=== PATIENT | female | born 1995 | race Caucasian/White ===

== ENCOUNTER 2016-05-09 20:08 | Emergency (ER) | payer MEDICAID, OTHER ==
[2016-05-09 21:21] VITALS: BP 108/72
--- NOTE | 2016-05-09 21:34 | UC ---
Ear Complaint HPI - HPI Summary HPI Summary: pt c/o right ear pain X 3 days. C/o of feeling that there is water in her ear. - History of Current Complaint Chief Complaint: UCEar Stated Complaint: EAR COMPLAINT Time Seen by Provider: 05/09/16 20:18 Hx Obtained From: Patient Hx Last Menstrual Period: GAVE IN FEBRUARY 2016 ?: No Onset/Duration: Gradual Onset, Lasting Days Severity Initially: Mild Severity Currently: Mild Associated Signs/Symptoms: Positive: Foreign Body Sensation - Allergies/Home Medications Allergies/Adverse Reactions: Allergies Allergy/AdvReac Type Severity Reaction Status Date / Time Morphine Allergy Intermediate Rash Verified 05/09/16 21:21 PMH/Surg Hx/FS Hx/Imm Hx Previously Healthy: Yes - Surgical History Surgical History: Yes Surgery Procedure, Year, and Place: Tonsillectomy ~ 2009, CHOLECYSTECTOMY - Family History Known Family History: Positive: Cardiac Disease - Social History Lives: With Family Alcohol Use: None Substance Use Type: None Smoking Status (MU): Current Every Day Smoker Type: Cigarettes Amount Used/How Often: 3-4 CIG/DAY - Immunization History Most Recent Influenza Vaccination: Fall 2012 Most Recent Tetanus Shot: unk Most Recent Pneumonia Vaccination: none Review of Systems Constitutional: Negative Skin: Negative Eyes: Negative ENT: Ear Ache - right ear Respiratory: Negative Cardiovascular: Negative Gastrointestinal: Negative Genitourinary: Negative Motor: Negative Neurovascular: Negative Musculoskeletal: Negative Neurological: Negative Psychological: Negative All Other Systems Reviewed And Are Negative: Yes Physical Exam Triage Information Reviewed: Yes Appearance: Well-Appearing Vital Signs: Initial Vital Signs Temp 98 F 05/09/16 21:17 Pulse 76 05/09/16 21:17 Resp 16 05/09/16 21:17 BP 108/72 05/09/16 21:17 Pulse Ox 99 05/09/16 21:17 Vital Signs Reviewed: Yes ENT Exam: Other ENT: Positive: TM bulging - right, right outer ear canal swollen Neck exam: Normal Respiratory Exam: Normal Cardiovascular Exam: Normal Musculoskeletal Exam: Normal Neurological Exam: Normal Psychological Exam: Normal Skin Exam: Normal Ear Complaint Course/Dx - Differential Dx/Diagnosis Differential Diagnosis/HQI/PQRI: Cerumen Impaction, Otitis Externa, Otitis Media , URI Provider Diagnoses: right ear ache Discharge - Discharge Plan Condition: Stable Disposition: HOME Prescriptions: Ciproflox/Dexameth OTIC.SUSP* [Ciprodex OTIC.SUSP*] 3 drop RIGHT EAR Q8HR #1 btl Patient Education Materials: Earache (ED) Referrals: ANGI Jose [Primary Care Provider] -
== END 2016-05-09 21:30 | disposition home or self-care (01) ==
LOC: UCEAST 20:08
DX: H92.01 Otalgia, right ear (principal); Z88.5 Allergy status to narcotic agent; F17.210 Nicotine dependence, cigarettes, uncomplicated
CPT/HCPCS: 99212; G0463

== ENCOUNTER 2018-11-09 19:34 | Emergency (ER) | payer SELFPAY ==
--- OUTSIDE RECORDS SUMMARY | 2018-11-09 20:17 | XMS REPORT | Continuity of Care Document ---
:1995 Author Organization [facility] Support Name Relationship Address Phone ERIK CHIN mother [address] [place] [address] ERIK CHIN mother [id number] [place] [address] Allergies and Intolerances Code Code System Allergy Type Reaction Severity Start Date End Date Status Substance 7052 RXNorm Morphine Drug allergy itching Moderate 1994 Active (disorder) Medications RxNorm Medication Dose Route Instructions Start End Date Status Date 917710 Etonogestrel 68 1 implant subdermal subdermally once Active MG Drug Implant Problems Code Code System Problem Name Start Date End Date Status 253319917 SNOMED-CT Gastroesophageal reflux disease U Active GALLBLADDER REMOVAL U Active Procedures No data in the system Results Laboratory Results Order: AMYLASE Specimen Source: Body Site : Legend: (G,H)=High, (GG,HH,CH,#H)=Above High Threshold, (#,L)=Low, (##,CL,#L, LL)=Below Low Threshold, (C,CC,CA,#A,A)=Abnormal LOINC Test Result Flag Range Units Date 1798-09 1Amylase [facility] 52 25-125 U/L 10/24/2018 04:52 Performing Lab Footnotes:[facility] - [id number] - [address] [place] [address] AUDREY THURMAN Order: CBC DIFF Specimen Source: Body Site: Legend: (G,H)=High, (GG,HH, CH,#H)=Above High Threshold, (#,L)=Low, (##,CL,#L,LL)=Below Low Threshold, (C,CC ,CA,#A,A)=Abnormal LOINC Test Result Flag Range Units Date 6690-2 1WBC # Bld Auto 13.7 H 4.8-10.8 K/uL 10/24/2018 04:52 97945-3 1RBC # Bld 4.71 4.20-5.40 M/uL 10/24/2018 04:52 718-7 1Hgb Bld-mCnc 14.8 12.0-16.0 gm/dL 10/24/2018 04:52 4544-3 1Hct VFr Bld Auto 41.6 36.0-48.0 % 10/24/2018 04:52 787-2 1MCV RBC Auto 88.2 80.0-100.0 fL 10/24/2018 04:52 23684-6 1MCHC RBC-mCnc 35.5 30.0-36.5 % 10/24/2018 04:52 14270-0 1MCH RBC Qn 31.4 27.0-34.0 pg 10/24/2018 04:52 22696-9 1RDW RBC 12.6 11.0-15.0 % 10/24/2018 04:52 777-3 1Platelet # Bld Auto 251 130-450 K/uL 10/24/2018 04:52 78790-0 1PMV Bld Auto 7.4 6.0-12.0 fL 10/24/2018 04:52 751-8 1Neutrophils # Bld Auto 60 37-80 % 10/24/2018 04:52 64639-3 1Lymphocytes NFr Bld 28 10-50 % 10/24/2018 04:52 5905-5 1Monocytes NFr Bld Auto 8 0-12 % 10/24/2018 04:52 66651-4 1Eosinophil # Bld 5 <=8 % 10/24/2018 04:52 704-7 1Basophils # Bld Auto 0 <=3 % 10/24/2018 04:52 79668-8 1Neutrophils # Bld 8.2 1.8-8.6 K/uL 10/24/2018 04:52 731-0 1Lymphocytes # Bld Auto 3.8 0.5-5.0 K/uL 10/24/2018 04:52 742-7 1Monocytes # Bld Auto 1.1 0.0-1.3 K/uL 10/24/2018 04:52 83182-8 1Eosinophil # Bld 0.6 0.0-0.9 K/uL 10/24/2018 04:52 704-7 1Basophils # Bld Auto 0.0 0.0-0.3 K/ul 10/24/2018 04:52 Performing Lab Footnotes:[facility] - [id number] - [address] [place] [address] AUDREY Quiles [id number] Order: COMPREHENSIVE PANEL Specimen Source: Body Site: Legend: (G,H)= High, (GG,HH,CH,#H)=Above High Threshold, (#,L)=Low, (##,CL,#L,LL)=Below Low Threshold, (C,CC,CA,#A,A)=Abnormal LOINC Test Result Flag Range Units Date 1-2 1Sodium SerPl-sCnc 138 136-145 mmol/L 10/24/2018 04:52 2823-3 1Potassium SerPl-sCnc 3.7 3.5-5.2 mmol/L 10/24/2018 04:52 5-0 1Chloride SerPl-sCnc 107 100-108 mmol/L 10/24/2018 04:52 8-9 1CO2 SerPl-sCnc 22 21-32 mmol/L 10/24/2018 04:52 2345-7 1Glucose SerPl-mCnc 84 70-100 mg/dL 10/24/2018 04:52 3094-0 1BUN SerPl-mCnc 12 7-21 mg/dL 10/24/2018 04:52 2160-0 1Creat SerPl-mCnc 0.8 0.6-1.3 mg/dL 10/24/2018 04:52 Interpretive Anaya: 1Normal Kidney Function or Mild Disease - GFR >OR=60 Chronic Kidney Disease - GFR 15-59 Renal Failure - GFR < 15 GFR not calculated on patients under 18 years of age. Calculated (estimated) GFR is based on the MDRD Study equation, which assumes a steady state for creatinine. Estimated GFR may not be appropriate for medication dosing. 73662-4 1Ca-I SerPl-mCnc 9.0 8.5-10.8 mg/dL 10/24/2018 04:52 78322-5 1GFR/BSA.pred SerPl-ArVRat >60 10/24/2018 04:52 19714-0 1Bilirub Bld-mCnc 0.8 0.0-1.2 mg/dL 10/24/2018 04:52 2885-2 1Prot SerPl-mCnc 7.1 6.4-8.2 gm/dL 10/24/2018 04:52 1751-7 1Albumin SerPl-mCnc 4.3 3.4-4.8 gm/dL 10/24/2018 04:52 6768-6 1ALP SerPl-cCnc 111 40-150 U/L 10/24/2018 04:52 1742-6 1ALT SerPl-cCnc 14 0-55 U/L 10/24/2018 04:52 1920-8 1AST SerPl-cCnc 18 5-37 U/L 10/24/2018 04:52 Performing Lab Footnotes:[facility] - [id number] - [address] [place] [address] AUDREY THURMAN Order: LACTIC ACID Specimen Source: Body Site: Legend: (G,H)=High, (GG, HH,CH,#H)=Above High Threshold, (#,L)=Low, (##,CL,#L,LL)=Below Low Threshold, (C ,CC,CA,#A,A)=Abnormal LOINC Test Result Flag Range Units Date 92880-2 1Lactate PlasV-sCnc 0.5 0.5-2.2 mmol/L 10/24/2018 04:52 Performing Lab Footnotes:[facility] - [id number] - [address] [place] [address] AUDREY [id number] Order: LIPASE Specimen Source: Body Site: Legend: (G,H)=High, (GG,HH,CH ,#H)=Above High Threshold, (#,L)=Low, (##,CL,#L,LL)=Below Low Threshold, (C,CC, CA,#A,A)=Abnormal LOINC Test Result Flag Range Units Date 3040-3 1Lipase SerPl-cCnc 11 8-78 U/L 10/24/2018 04:52 Performing Lab Footnotes:[facility] - [id number] - [address] [place] [address] AUDREY [id number] Order: TEST - SERUM Specimen Source: Body Site: Legend: (G,H) =High, (GG,HH,CH,#H)=Above High Threshold, (#,L)=Low, (##,CL,#L,LL)=Below Low Threshold, (C,CC,CA,#A,A)=Abnormal LOINC Test Result Flag Range Units Date 8-8 1HCG Preg SerPl Ql NEGATIVE 10/24/2018 04:52 1Detection Level: >=10 mIU/mL Performing Lab Footnotes:[facility] - [id number] [place] [address] AUDREY MOSQUEDAOMKoby Order: PT/INR Specimen Source: Body Site: Legend: (G,H)=High, (GG,HH,CH ,#H)=Above High Threshold, (#,L)=Low, (##,CL,#L,LL)=Below Low Threshold, (C,CC, CA,#A,A)=Abnormal LOINC Test Result Flag Range Units Date 5902-2 1PT Time PPP 12.7 H 9.4-12.4 sec 10/24/2018 04:52 6301-6 1INR PPP 1.1 10/24/2018 04:52 Interpretive Anaya: 1 INR INTERPERTATION 2.0-3.0 THERAPEUTIC MONITORING 2.5-3.5 HEART VALVE REPLACEMENT Performing Lab Footnotes:[facility] - [id number] [address] [address] AUDREY THURMAN Order: PTT Specimen Source: Body Site: Legend: (G,H)=High, (GG,HH,CH,#H )=Above High Threshold, (#,L)=Low, (##,CL,#L,LL)=Below Low Threshold, (C,CC,CA,# A,A)=Abnormal LOINC Test Result Flag Range Units Date 3173-2 1aPTT Time Bld 33.1 25.6-36.4 sec 10/24/2018 04:52 Performing Lab Footnotes:[facility] - [id number] - [address] [place] [address] AUDREY [id number] Radiology Results Order: CT-ABD PELVIS WITH IV CONTRASTExam Completion Date:10/24/2018 05: 5:[address] ABDOMEN AND PELVIS WITH CONTRAST CLINICAL INFORMATION: -- UNSPECIFIED ABDOMINAL PAIN COMPARISON: None. PROCEDURE: Contiguous images were obtained through the abdomen and pelvis with intravenous contrast. Automated exposure control, adjustment of the mA and/or kV according to patient size, and/or iterative reconstruction techniques were utilized for radiation doseoptimization. Amount and type of contrast that was injected and/or discarded is recorded in the electronic medical record. FINDINGS: Chest Base: Unremarkable. Liver/ Biliary Tract: Hypoattenuating lesion at the hepatic dome (best visualized on coronal and sagittal views) is too small to definitively characterize but likely represents a small cyst or hemangioma.. Cholecystectomy. No biliary ductal dilatation. Metallic clip in Morison's pouch is likely related to prior cholecystectomy. Pancreas: Unremarkable. Spleen: Unremarkable. Adrenals : Unremarkable. Kidneys and Collecting Systems: Unremarkable. Lymph Nodes : Unremarkable. Vessels: Unremarkable for age. GI Tract/Mesentery and Peritoneal Cavity: Normal appendix. No abnormally dilated or thickened loops of large or small bowel. Small free pelvic fluid. No free air. Uterus/Ovaries: Likely physiologic fluid within the endometrial cavity. Physiologic follicle in the right ovary. Left ovary unremarkable. Bladder: Unremarkable. Soft Tissues/Musculoskeletal: No acute abnormality. IMPRESSION: No evidence for acute pathology in the abdomen or pelvis. END OF IMPRESSION I have personally reviewed the images and the Resident's/Fellow's interpretation and agree with or edited the findings. [facility] submits Radiology results to [facility] and [facility] then provides those same results to [facility]. All results are available to [facility] and [facility] provider portal users. [facility] DICOM images are available to the [facility] provider portal users only. [facility] DICOM images are not available to the [facility] provider portal users. There is no current [facility] cross-[facility] functionality allowing images jose armando available through the [facility] to [facility] connectivity. Interpreted By: Mc Cortes M.D. Electronically signed By: Leanna Spence MD Read By: LEANNA SPENCE Date: 10/24/2018 06:10 Social History Code Code System Social History Description Dates Observed Observation 91509072 SNOMED CT Current Smoking Smoker, current Status status unknown UNK AdministrativeGender Sex Assigned At Unknown Vital Signs Code Code System Vitals Value Date 8302-2 INC Height 61 [in_i] 10/24/2018 59149-6 LOINC Weight 74.4 kg 10/24/2018 3140-1 [facility] Body surface area Derived from formula 1.74 m2 10/24/2018 18710-2 [facility] BMI (Body Mass Index) 31.3 kg/m2 10/24/2018 8310-5 [facility] Body Temperature 99.5 [degF] 10/24/2018 8865-8 [facility] Pulse Rate 77 {beats}/min 10/24/2018 9279-1 [facility] Respiratory Rate 16 /min 10/24/2018 02551-1 [facility] O2% BldC Oximetry 97 % 10/24/2018 8480-6 [facility] BP Systolic 120 mm[Hg] 10/24/2018 8462-4 [facility] BP Diastolic 64 mm[Hg] 10/24/2018 Goals Section No data in the system Health Concerns No data in the systemEncounter Diagnosis Date Code Code System Diagnosis Status R10.32 ICD10 LEFT LOWER QUADRANT PAIN Active Advance Directives *RHIO - CONSENT IS YES Directive Type Effective Date Digital Advertising Analyst Notes Supporting Document Name Address Phone No Directive Type 03/22/2014 4:03:53 Not Specified Not Specified Not Specified None No specified PM PT STATES NO ADVANCE DIRECTIVES Directive Type Effective Date Digital Advertising Analyst Notes Supporting Document Name Address Phone No Directive Type 03/07/2016 4:00:00 Not Specified Not Specified Not Specified None No specified AM Family History Relationship: Father Health Problem Age At Onset Notes Diabetes mellitus Relationship: Paternal Grandfather Health Problem Age At Onset Notes COPD (Chronic obstructive lung disease) Functional Status Code Functional Condition Code System Date Status Independent adls SNOMED CT 10/24/2018 Active Appears well nourished/hydrated SNOMED CT 10/24/2018 Active Immunizations No data in the system Medical Equipment No data in the system Mental Status Code Cognitive Condition Code System Date Status Moves all extremities SNOMED CT 10/24/2018 Active No acute distress SNOMED CT 10/24/2018 Active 667473852 Orientated SNOMED CT 10/24/2018 Active 047122460 Mentally alert [facility] 10/24/2018 Active Assessment and Plan Assessments No data in the systemPlan Of Treatment No data in the systemPending Tests Test Start Date Point of Care URINE DIPSTICK 10/24/2018 Hospital Discharge Instructions No data in the system Reason for Visit Reason for Visit Stomach Pain
[2018-11-09 21:51] LABS: ABS Basophils 0.1 10^3/ul (0-0.2); ABS Eosinophils 0.6 10^3/ul (0-0.6); ABS Lymphocytes 3.2 10^3/ul (1.0-4.8); ABS Monocytes 0.8 10^3/ul (0-0.8); ABS Neutrophils 5.2 10^3/ul (1.5-7.7); Eosinophil % 5.8 %; Hematocrit 38 % (35-47); Hemoglobin 12.9 g/dL (12.0-16.0); Lymphocyte % 32.2 %; Mean Corpuscular HGB Conc 34 g/dL (31-36); Mean Corpuscular Hemoglobin 30 pg (27-31); Mean Corpuscular Volume 87 fL (80-97); Mean Platelet Volume 7.6 fL (7.4-10.4); Nucleated Red Blood Cells % 0.1; Platelet Count 330 10^3/uL (150-450); Red Blood Count 4.32 10^6 /uL (3.70-4.87); Red Cell Distribution Width 14 % (10-15); White Blood Count 9.8 10^3/uL (3.5-10.8)
--- NOTE | 2018-11-09 21:51 | ED ---
Abdominal Pain/Female - HPI Summary HPI Summary: 23-year-old female presents with 3 week history of left lower quadrant pain. States the pain was initially intermittent and sharp in nature and located just to the left of her umbilicus. States the pain has now localized more to the left lower quadrant and over the past 5 days has become constant. She was evaluated at [facility] 2 weeks ago for the same. States she had normal blood work and a normal CT scan at that time. Last menstrual period was 2018. Reports a normal duration and flow. Denies fever, chills, nausea, vomiting, diarrhea, back or flank pain, dysuria, frequency, urgency, hematuria, or vaginal discharge. - History of Current Complaint Chief Complaint: EDAbdPain Stated Complaint: ABD PAIN PER PT Time Seen by Provider: 11/09/18 21:14 Hx Obtained From: Patient Hx Last Menstrual Period: GAVE IN FEBRUARY 2016 Pain Intensity: 5 Allergies/Adverse Reactions: Allergies Allergy/AdvReac Type Severity Reaction Status Date / Time morphine Allergy Rash And Verified 11/09/18 19:50 Itching PMH/Surg Hx/FS Hx/Imm Hx Previously Healthy: Yes - Denies significant PMH - Surgical History Surgery Procedure, Year, and Place: Tonsillectomy ~ 2009, CHOLECYSTECTOMY Hx Anesthesia Reactions: No Infectious Disease History: No Infectious Disease History: Denies: Traveled Outside the [place] in Last 30 Days - Family History Known Family History: Positive: Cardiac Disease - Social History Occupation: Unemployed Lives: With Family Alcohol Use: None Substance Use Type: Reports: None Smoking Status (MU): Current Every Day Smoker Type: Cigarettes Amount Used/How Often: 3-4 CIG/DAY Review of Systems Negative: Fever, Chills Cardiovascular: Negative Respiratory: Negative Positive: Abdominal Pain. Negative: Vomiting, Diarrhea, Nausea Negative: dysuria, frequency, flank pain, hematuria, urgency Musculoskeletal: Negative Skin: Negative Neurological: Negative All Other Systems Reviewed And Are Negative: Yes Physical Exam - Summary Physical Exam Summary: GENERAL APPEARANCE: Well developed, well nourished, alert and cooperative, and appears to be in no acute distress. CARDIAC: Normal S1 and S2. No S3, S4 or murmurs. Rhythm is regular. There is no peripheral edema, cyanosis or pallor. Extremities are warm and well perfused. Capillary refill is less than 2 seconds. Peripheral pulses intact. LUNGS: Clear to auscultation without rales, rhonchi, wheezing or diminished breath sounds. ABDOMEN: Positive bowel sounds. Soft, nondistended. Mild LLQ tenderness without guarding or rebound. No masses or hepatosplenomegally. No CVA tenderness. MUSKULOSKELETAL: ROM intact to all extremities. No joint erythema or tenderness. Normal muscular development. Normal gait. SKIN: Skin normal color, texture and turgor with no lesions or eruptions. Triage Information Reviewed: Yes Vital Signs On Initial Exam: Initial Vitals Temp Pulse Resp BP Pulse Ox 99.2 F 90 16 105/71 100 11/09/18 19:46 11/09/18 19:46 11/09/18 19:46 11/09/18 19:46 11/09/18 19:46 Vital Signs Reviewed: Yes Diagnostics - Vital Signs Vital Signs Temp Pulse Resp BP Pulse Ox 11/09/18 19:46 99.2 F 90 16 105/71 100 - Laboratory Result Diagrams: 11/09/18 21:46 11/09/18 21:46 Lab Statement: Any lab studies that have been ordered have been reviewed, and results considered in the medical decision making process. - Ultrasound No standard instances Ultrasound Interpretation Completed By: Radiologist Summary of Ultrasound Findings: EXAM: US Pelvis, Transvaginal. EXAM DATE/TIME : 11/09/2018 10:40 PM. CLINICAL HISTORY: 23 years old, female; Pelvic pain; Additional info: Llq pain x 3 weeks. TECHNIQUE: Imaging protocol: Real-time transvaginal pelvic ultrasound with image. documentation. Transvaginal imaging was used for better evaluation of the. endometrium and adnexa. COMPARISON: No relevant prior studies available. FINDINGS: Uterus/cervix: The uterus measures 8.8 cm in its cephalocaudad dimension and 3.8 x 5.1 cm in its AP and lateral dimensions. The endometrium measures 12 mm. Right adnexa: The right ovary measures 3.5 x 3.9 x 2.1 cm demonstrates minimal follicles and blood flow. Left adnexa: The left ovary is slightly enlarged and heterogeneous with. irregular borders measuring 4.6 x 6.3 x 3.6 cm and demonstrates a simple cystic. area measuring 2.1 x 1.3 x 2.3 cm with normal blood flow. There is also a. solid-appearing complex nodule measuring 2.2 x 1.0 x 1.6 cm. Free fluid: None. IMPRESSION: 1. Mildly enlarged and heterogeneous left ovary with a simple cystic area and a complex solid-appearing area measuring 2.2 x 1.0 x 1.6 cm may reflect a hemorrhagic cyst. 2. Otherwise negative pelvic sonogram with bilateral ovarian blood flow. Abdominal Pain Fem Course/Dx - Course Course Of Treatment: 23-year-old female presents with 3 week history of left lower quadrant pain. States the pain was initially intermittent and sharp in nature and located just to the left of her umbilicus. States the pain has now localized more to the left lower quadrant and over the past 5 days has become constant. She was evaluated at [facility] 2 weeks ago for the same. States she had normal blood work and a normal CT scan at that time. Last menstrual period was 10/29/2018. Reports a normal duration and flow. Denies fever, chills, nausea, vomiting, diarrhea, back or flank pain, dysuria, frequency, urgency, hematuria, or vaginal discharge. Afebrile. Vital signs stable. Patient was noted to have some mild left lower quadrant tenderness without rebound or guarding and otherwise unremarkable exam. Blood work was stable. Urinalysis showed 3+ leukocyte esterase, 1+ blood, WBC >20/hpf, RBC >10 /hpf, with squamous cell present. Urine culture is pending. Transvaginal ultrasound showed mildly enlarged and heterogeneous left ovary with a simple cystic area and a complex solid-appearing area measuring 2.2 x 1.0 x 1.6 cm may reflect a hemorrhagic cyst. The results were reviewed with the patient. With her lack of UTI symptoms we discussed treating her empirically for UTI versus waiting for the urine culture results. Patient is electing for the former. Was given a dose of Bactrim DS 1 tablet PO in the ED and a prescription was sent to continue twice a day 3 days pending urine culture. Patient is to follow-up with her primary care provider in 3-5 days if her urinary symptoms persist. She is also to follow-up with her CHIEF ELECTRICIAN in 1-2 weeks for further evaluation of the ovarian cyst. Anticipatory guidance and warning symptoms were reviewed with the patient. Verbalizes understanding and agrees with plan of care. - Diagnoses Differential Diagnosis: Positive: Constipation, Diverticulitis, Ectopic , Ovarian Cyst, Renal Colic Provider Diagnoses: Left ovarian cyst, UTI (urinary tract infection) Discharge - Sign-Out/Discharge Documenting (check all that apply): Patient Departure Patient Received Moderate/Deep Sedation with Procedure: No - Discharge Plan Condition: Stable Disposition: HOME Prescriptions: Sulfamethox/Trimethoprim DS* [Bactrim DS 800/160 TAB*] 1 tab PO BID #5 tab Patient Education Materials: Ovarian Cyst (ED), Urinary Tract Infection in Women (ED) Referrals: No Primary Care Phys,NOPCP [Primary Care Provider] - Additional Instructions: The ultrasound performed in the emergency room tonight showed evidence of a left ovarian cyst. Your blood work was normal. The urine test showed evidence of a possible urinary tract infection. We will start you on an antibiotic to treat for a urinary tract infection. Start Bactrim DS 1 tablet twice a day for 3 days. We gave you the first dose in the emergency room. Drink plenty of fluids. To help prevent urinary tract infections: 1) Be sure to wipe from front to back. 2) Urinate immediately after any sexual intercourse. 3) Avoid taking bubble baths. Follow up with your primary care provider in 3-5 days if your urinary symptoms persist. Follow-up with your CHIEF ELECTRICIAN within 1-2 weeks for follow-up of the ovarian cyst. Seek immediate medical attention in the emergency room if you develop fever greater than 100.5 F, have severe abdominal pain, persistent vomiting, or any worsening of symptoms. - Billing Disposition and Condition Condition: STABLE Disposition: Home - Attestation Statements Provider Attestation: pt seen by midlevel provider independently, based on their assessment, it was not necessary to present the case to me but I was available for consultation. I did not form a physician-patient relationship with the patient. The chart however, has been reviewed. am signing this note strictly in an administrative capacity.
[2018-11-09 22:10] LABS: ALT 11 U/L (7-52); AST 13 U/L (13-39); Albumin/Globulin Ratio 1.5 (1-3); Alkaline Phosphatase 96 U/L (34-104); Anion Gap 4 mmol/L (2-11); BUN/Creatinine Ratio 14.9 (8-20); Blood Urea Nitrogen 11 mg/dL (6-24); CO2 Carbon Dioxide 28 mmol/L (22-32); Calcium 9.3 mg/dL (8.6-10.3); Chloride 107 mmol/L (101-111); EGFR African American 116.7 (>60); EGFR Non-African American 96.4 (>60); Globulin 2.7 g/dL (2-4); Glucose 99 mg/dL (70-100); Potassium 4.6 mmol/L (3.5-5.0); Sodium 139 mmol/L (135-145); Total Protein 6.7 g/dL (6.4-8.9)
[2018-11-09 22:15] LABS: HCG Pregnancy < 0.60 mIU/mL
[2018-11-09 22:34] LABS: Urine Appearance Cloudy; Urine Bacteria Absent (Absent); Urine Bilirubin Negative (Negative); Urine Blood 1+ (Negative); Urine Color Yellow; Urine Glucose Negative (Negative); Urine Ketones Negative (Negative); Urine Nitrite Negative (Negative); Urine Protein Negative (Negative); Urine Red Blood Cell 3+(>10/hpf) (Absent); Urine Specific Gravity 1.016 (1.010-1.030); Urine Squamous Epithelial Cell Present (Absent); Urine Urobilinogen Negative (Negative); Urine White Blood Cell 3+(>20/hpf) (Absent)
[2018-11-09 22:50] LABS: HIV 4th Generation Negative (Negative)
[2018-11-10] MEDS ORDERED: Sulfamethox/Trimethoprim DS 800/160* TAB PO ONE (00:28)
[2018-11-10 00:45] VITALS: BP 116/81
== END 2018-11-10 00:43 | disposition home or self-care (01) ==
LOC: ED 19:34
DX: N83.292 Other ovarian cyst, left side (principal); N39.0 Urinary tract infection, site not specified; F17.210 Nicotine dependence, cigarettes, uncomplicated; Z88.5 Allergy status to narcotic agent
CPT/HCPCS: 36415; 76830; 76856; 80053; 81003; 81015; 83690; 84702; 85025; 87086; 87389; 99282; A9270-GY